=== PATIENT | male | born 1975 | race Caucasian/White ===

== ENCOUNTER 2021-11-13 04:50 | Day surgery (SDC) | payer OTHER | END 2021-11-13 09:45 | disposition home or self-care (01) | LOC: CIR.AMB 04:50 | PROVIDERS: ATTEND Specialist | DX: D17.1 Benign lipomatous neoplasm of skin and subcutaneous tissue of trunk (principal); Z20.822 Contact with and (suspected) exposure to COVID-19; Z87.891 Personal history of nicotine dependence; Z86.16 Personal history of COVID-19 ==